=== PATIENT | female | born 1960 | race Hispanic/Latino ===

== ENCOUNTER 2019-03-05 10:12 | Emergency (ER) | payer OTHER ==
[~2019-03-05] VITALS: Ht 170.2 cm; Wt 95.3 kg
--- NOTE | 2019-03-05 10:16 | NUR ---
ED Nurse Note: Pt RAQUEL constantino s/p ground level fall in the bathtub. According to EMS, she slipped and fell in the bathtub. No head trauma. No loss of consciousness. Pt noted to be unable to move her left arm and is complaining of 10/10 pain in the area. Non radiating. Pt has had a bunion surgery on her left foot on Tuesday and was supposed to have her dressing changed today. Pt is A + O x4. Ambulatory. Skin warm to touch.
[2019-03-05 10:17] VITALS: BP 131/60
[2019-03-05] MEDS ORDERED: Ketorolac 30mg Inj IV ONE (10:30)
[2019-03-05] MEDS ORDERED: Morphine Sulfate 4mg/ml Inj (IV USE ONLY) IVP ONE (10:30)
--- NOTE | 2019-03-05 10:37 | NUR ---
ED Nurse Note: Xray at the bedside.
--- NOTE | 2019-03-05 11:32 | Diagnostic Imaging Report ---
Indication: Trauma, pain Technique: 3 views of the left shoulder Comparison: none Findings: There is a multipartite comminuted fracture of the distal left clavicle. This is displaced by over one bone width, and is angulated. No humeral or scapular fracture demonstrated.. Impression: Positive for distal clavicular fracture Findings discussed by phone with Dr. Orellana in the emergency room at the time of interpretation
--- NOTE | 2019-03-05 11:44 | NUR ---
ED Nurse Note: Left arm sling placed on pt.
--- NOTE | 2019-03-05 12:26 | Diagnostic Imaging Report ---
Indication: Chest pain, trauma Technique: One view of the chest Comparison: none Findings: Inspiration is suboptimal. The heart is borderline enlarged. Lungs and pleural spaces are clear. There is a fracture of the distal left clavicle, also reported separately Impression: No acute cardiac pulmonary process Borderline cardiomegaly Distal left clavicular fracture-see separate report
--- NOTE | 2019-03-05 12:46 | Emergency Room Report ---
History of Present Illness General Chief Complaint: Multiple Trauma/Fall Source: Patient Present Illness HPI Just prior to falling the patient was in a shower and remove bag from her foot and she lost balance falling on her left hand side. She has pain in her shoulder and also the upper chest. She denies loss of consciousness. She did not hit her head. When she moves her arm she is got a clicking feeling in her collarbone. Pain is rated 10/10. She denies any numbness down her arm. The pain radiates somewhat to her arm and also into her neck. She feels fullness in her shoulder. She is able to move her shoulder about without difficulty but it causes pain. The patient was transported by EMS. The patient had recent bunion surgery of her left foot. 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 This pain has been manageable. She denies any fevers or chills. No shortness of breath, cough, hip knee or increased ankle or foot pain. Allergies: Coded Allergies: No Known Allergies (Unverified , 03/05/19) Patient History Past Medical History: see triage record Past Surgical History: other - Bunion surgery left foot Social History Narrative From home Now: No Reviewed Nursing Documentation: PMH: Agreed; PSxH: Agreed Nursing Documentation-PMH Past Medical History: No Stated History Review of Systems All Other Systems: negative except mentioned in HPI Physical Exam Vital Signs Date Time Temp Pulse Resp B/P (MAP) Pulse Ox O2 Delivery O2 Flow Rate FiO2 03/05/19 10:08 98.2 82 20 138/71 98 Room Air 03/05/19 10:17 97 Sp02 EP Interpretation: reviewed, normal General Appearance: well appearing, no apparent distress Head: normocephalic, atraumatic Eyes: bilateral eye normal inspection, bilateral eye PERRL, bilateral eye EOMI ENT: hearing grossly normal, normal voice, moist mucus membranes Neck: full range of motion, supple, no bony tend Respiratory: chest non-tender - Except left shoulder area, lungs clear, normal breath sounds, no respiratory distress, speaking full sentences Cardiovascular #1: regular rate, rhythm, no edema Cardiovascular #2: 2+ radial (L) - Good capillary refill Gastrointestinal: normal inspection, normal bowel sounds, non tender, soft Musculoskeletal: back normal, digits/nails normal, gait/station normal, swelling - Left shoulder, other - Tenderness to palpation clavicle left Neurologic: alert, oriented x3, motor strength/tone normal, sensory intact, normal gait Psychiatric: mood/affect normal - In pain Skin: no rash, other - Dressing examined. Some wound blood present. She states that she is going to see her own doctor after discharge for evaluation of the surgical site. Medical Decision Making Diagnostic Impression: Primary Impression: Closed left clavicular fracture Qualified Codes: S42.035A - Nondisplaced fracture of lateral end of left clavicle, initial encounter for closed fracture Additional Impression: Contusion of left shoulder Qualified Codes: S40.012A - Contusion of left shoulder, initial encounter ER Course Patient presents post fall pain in her left shoulder. Differential includes contusion, shoulder fracture, clavicle fracture, chest contusion, hematoma amongst others. X-rays are indicated of the shoulder and clavicle. In addition the chest x-ray is performed. The patient will be treated with IV Toradol, Zofran and morphine. Chest x-ray no f pneumothorax. Clavicle with distal fracture nondisplaced. Shoulder no bony abnormalities. A sling was placed on the patient. She still felt mobility and pain. I applied an Bradley wrap so this was Bradley sling and swath. She had improvement after this. Distal neurovascular exam was normal as checked by me. ([id number] splint not available.) I discussed the need for follow-up with environmental resource specialist. Patient was improved and the pain was controlled. Patient stable for outpatient observation and treatment. Chest X-Ray Diagnostic Results Chest X-Ray Diagnostic Results : Chest X-Ray Ordered: Yes # of Views/Limited/Complete: 1 View Indication: Other EP Interpretation: Yes Interpretation: no consolidation, no effusion, no pneumothorax, other - Clavicle fracture Impression: Other Electronically Signed by: Electronically signed by Primo Orellana MD Other X-Ray Diagnostic Results Other X-Ray Diagnostic Results #1: X-Ray ordered: Left clavicle # of Views/Limited Vs Complete: 2 View Indication: Pain Interpretation: no dislocation, other - Soft tissue swelling and fracture Impression: Other Electronically Signed by: Electronically signed by Primo Orellana MD Other X-Ray Diagnostic Results #2: X-Ray ordered: Left shoulder # of Views/Limited Vs Complete: 3 View Indication: Pain Interpretation: no dislocation, other - Fracture of the clavicle with some soft tissue swelling Impression: Other Electronically Signed by: Electronically signed by Primo Orellana MD Last Vital Signs Date Time Temp Pulse Resp B/P (MAP) Pulse Ox O2 Delivery O2 Flow Rate FiO2 03/05/19 13:02 98.2 77 14 128/73 99 Room Air 97 Status: improved Disposition: HOME, SELF-CARE Condition: Improved Scripts Ibuprofen* (MOTRIN*) 600 Mg Tablet 600 MG ORAL Q6H PRN for For Pain, #20 TAB Prov: Primo Orellana MD 03/05/19 Hydrocodone Bit/Acetaminophen 5-325* (NORCO 5-325*) 1 Each Tablet 1 TAB ORAL Q6H PRN for For Pain, #10 TAB 0 Refills Prov: Primo Orellana MD 03/05/19 Referrals: [facility],REFERRING (PCP) Primo Orellana MD Mar 05, 2019 12:46
[2019-03-05] MEDS ORDERED: IBUPROFEN600 MG ORAL (12:51)
[2019-03-05] MEDS ORDERED: NORCO 5-325 TA1 EACH ORAL (12:51)
[2019-03-05 13:02] VITALS: BP 128/73
--- NOTE | 2019-03-05 13:02 | NUR ---
ER DISCHARGE NOTE: Patient is cleared to be discharged per ERMD, pt is aox4, on room air, with stable vital signs. pt was given dc and prescription instructions, pt was able to verbalize understanding, pt id band and iv site removed without complications. pt is able to ambulate with steady gait. pt took all belongings.
--- NOTE | 2019-03-05 13:19 | Diagnostic Imaging Report ---
Indication: Trauma, pain Technique: 2 views of the left clavicle Comparison: none Findings: There is a comminuted fracture the distal clavicle. Impression: Positive for distal clavicular fracture
== END 2019-03-05 13:03 | disposition home or self-care (01) ==
LOC: EDBD 10:12 → EMR 10:45
DX: S42.035A Nondisplaced fracture of lateral end of left clavicle, initial encounter for closed fracture (principal); S40.012A Contusion of left shoulder, initial encounter; W19.XXXA Unspecified fall, initial encounter; Y92.9 Unspecified place or not applicable
CPT/HCPCS: 71045; 73000; 73030; 96374; 96375; 99284; J1885; J2270; J2405